=== PATIENT | female | born 1945 | race Caucasian/White ===

== ENCOUNTER 2018-03-09 14:14 | Inpatient (IN) | payer MEDICARE, OTHER ==
[2018-03-09 15:54] LABS: ADD MAN DIFF? NO
[2018-03-09 15:58] LABS: ABNORMAL IP MESSAGE 1; BASOPHILS % 0.1 % (0.0-2.0); EOSINOPHILS % 0.1 % (0.0-7.0); HEMATOCRIT 32.1 % (37.0-47.0); HEMOGLOBIN 9.1 g/dl (12.0-16.0); LYMPHOCYTES # 1.5 10^3/ul (0.8-2.9); LYMPHOCYTES % 10.6 % (15.0-51.0); MEAN CORPUSCULAR HEMOGLOBIN 20.4 pg (29.0-33.0); MEAN CORPUSCULAR HGB CONC 28.3 g/dl (32.0-37.0); MEAN PLATELET VOLUME 9.8 fl (7.4-10.4); MONOCYTE # 1.1 10^3/ul (0.3-0.9); MONOCYTES % 7.8 % (0.0-11.0); NEUTROPHIL # 11.3 10^3/ul (1.6-7.5); NEUTROPHILS % 80.9 % (39.0-77.0); PLATELET COUNT 385 10^3/UL (140-415); RED BLOOD COUNT 4.46 10^6/ul (4.20-5.40); RED CELL DISTRIBUTION WIDTH 19.7 % (11.5-14.5)
[2018-03-09 15:58] LABS: WHITE BLOOD COUNT 13.9 10^3/ul (4.8-10.8)
[2018-03-09] MEDS: SOD CHLORIDE 0.9% 1,000 ML IV (15:59)
[2018-03-09] MEDS: OXYCODONE/ACETAMINOPHEN (5/325) TAB PO (16:00)
[2018-03-09] MEDS: KETOROLAC 15 MG INJ IV (16:00)
[2018-03-09 16:07] LABS: POSITIVE DIFF @See below
[2018-03-09 16:16] LABS: ALANINE AMINOTRANSFERASE 11 IU/L (13-69); ALBUMIN 4.1 g/dl (3.3-4.9); ALBUMIN/GLOBULIN RATIO 1.41; ALKALINE PHOSPHATASE 94 IU/L (42-121); ANION GAP 8 (5-13); ASPARTATE AMINO TRANSFERASE 16 IU/L (15-46); BILIRUBIN,INDIRECT 0.3 mg/dl (0-1.1); BILIRUBIN,TOTAL 0.3 mg/dl (0.2-1.3); BLOOD UREA NITROGEN 20 mg/dl (7-20); CALCIUM 10.3 mg/dl (8.4-10.2); CARBON DIOXIDE 30 mmol/L (21-31); CHLORIDE 106 mmol/L (97-110); CREATINE KINASE 99 IU/L (23-200); CREATININE 0.55 mg/dl (0.44-1.00); Estimated GFR > 60 mL/min (>60); GLUCOSE 100 mg/dl (70-220); LIPASE 47 U/L (23-300); SODIUM 144 mmol/L (135-144)
[2018-03-09 16:24] LABS: POTASSIUM 2.8 mmol/L (3.5-5.1)
[2018-03-09 16:27] LABS: TROPONIN-I < 0.012 ng/ml (0.000-0.120)
[2018-03-09] MEDS: MAGNESIUM SULFATE 1 GM/D5W 100 ML IVPB (17:23)
[2018-03-09] MEDS: POTASSIUM CHLORIDE 100 ML IVPB (17:42)
[2018-03-09] MEDS ORDERED: NACL 0.9% 3 ML SYG IV (18:00)
[2018-03-09] MEDS ORDERED: ACETAMINOPHEN 325 MG TAB PO (18:00)
[2018-03-09] MEDS ORDERED: ZOLPIDEM 5 MG TAB PO (18:00)
[2018-03-09] MEDS: CEFTRIAXONE 1 GM/50 ML (PMX) 50 ML IVPB (20:12)
[2018-03-09 21:15] LABS: ADD UMIC YES; UR ASCORBIC ACID 40 mg/dL (NEGATIVE); UR BACTERIA FEW /HPF (NONE SEEN); UR BILIRUBIN (Dip) 1+ mg/dL (NEGATIVE); UR BLOOD (Dip) NEGATIVE (NEGATIVE); UR CLARITY CLOUDY (CLEAR); UR COLOR AMBER (YELLOW); UR GLUCOSE (Dip) NEGATIVE (NEGATIVE); UR KETONES (Dip) 1+ mg/dL (NEGATIVE); UR LEUKOCYTE ESTERASE (Dip) 1+ Leu/ul (NEGATIVE); UR MUCUS MANY /HPF (NONE SEEN); UR NITRITE (Dip) NEGATIVE (NEGATIVE); UR RBC 4 /HPF (0-5); UR SQUAMOUS EPITHELIAL CELL FEW /HPF (FEW); UR TOTAL PROTEIN (Dip) 1+ mg/dl (NEGATIVE); UR UROBILINOGEN (Dip) 2+ mg/dL (NEGATIVE); UR WBC 19 /HPF (0-5)
[2018-03-09] MEDS: POTASSIUM CHLORIDE 40 MEQ in SOD CHLORIDE 0.45% 1,000 ML IV (22:58)
[2018-03-09] MEDS: PREGABALIN 25 MG CAP PO (22:59)
[2018-03-09] MEDS: FLUTICASONE/VILANTEROL 100-25 INH (22:59)
[2018-03-09] MEDS: ATORVASTATIN 10 MG TAB PO (22:59)
[2018-03-10] MEDS: morphine 2 MG INJ IV ×2 (00:13→09:13)
[2018-03-10] MEDS: POTASSIUM CHLORIDE 100 ML IVPB (02:07)
[2018-03-10] MEDS: POTASSIUM CHLORIDE 40 MEQ in SOD CHLORIDE 0.45% 1,000 ML IV ×2 (04:00→15:18)
[2018-03-10] MEDS: PANTOPRAZOLE (EC) 40 MG TAB PO ×2 (05:46→16:26)
[2018-03-10] MEDS ORDERED: AMLODIPINE 10 MG TAB PO (09:00)
[2018-03-10] MEDS ORDERED: LOSARTAN 50 MG TAB PO (09:00)
[2018-03-10] MEDS: PREGABALIN 25 MG CAP PO ×3 (09:06→20:36)
[2018-03-10] MEDS: POLYETHYLENE GLYCOL 17 GM PACKET PO (09:06)
[2018-03-10 09:07] LABS: ADD MAN DIFF? NO
[2018-03-10 09:09] LABS: WHITE BLOOD COUNT 7.5 10^3/ul (4.8-10.8)
[2018-03-10 09:09] LABS: ABNORMAL IP MESSAGE 1; BASOPHILS % 0.3 % (0.0-2.0); EOSINOPHILS # 0.2 10^3/ul (0.0-0.5); HEMOGLOBIN 8.2 g/dl (12.0-16.0); LYMPHOCYTES # 1.5 10^3/ul (0.8-2.9); LYMPHOCYTES % 19.9 % (15.0-51.0); MEAN CORPUSCULAR HGB CONC 27.3 g/dl (32.0-37.0); MEAN CORPUSCULAR VOLUME 73.2 fl (82.0-101.0); MEAN PLATELET VOLUME 10.2 fl (7.4-10.4); MONOCYTE # 0.7 10^3/ul (0.3-0.9); MONOCYTES % 8.9 % (0.0-11.0); NEUTROPHIL # 5.2 10^3/ul (1.6-7.5); NEUTROPHILS % 68.6 % (39.0-77.0); PLATELET COUNT 353 10^3/UL (140-415)
[2018-03-10] MEDS: FLUTICASONE/VILANTEROL 100-25 INH (09:09)
[2018-03-10 09:14] LABS: POSITIVE DIFF @See below
[2018-03-10 09:29] LABS: HEMOGLOBIN A1C 5.7 % (0-5.9)
[2018-03-10 09:39] LABS: IRON < 10 ug/dl (35-150)
[2018-03-10 09:45] LABS: TOTAL IRON BINDING CAPACITY 310 ug/dl (241-421)
[2018-03-10 09:51] LABS: ANION GAP 6 (5-13); BLOOD UREA NITROGEN 16 mg/dl (7-20); CALCIUM 9.4 mg/dl (8.4-10.2); CARBON DIOXIDE 26 mmol/L (21-31); CHLORIDE 110 mmol/L (97-110); CREATININE 0.47 mg/dl (0.44-1.00); Estimated GFR > 60 mL/min (>60); GLUCOSE 91 mg/dl (70-220); MAGNESIUM 2.2 mg/dl (1.7-2.5); POTASSIUM 4.6 mmol/L (3.5-5.1); SODIUM 142 mmol/L (135-144)
[2018-03-10] MEDS: HYDROCODONE/APAP (5/325) TAB PO ×2 (11:35→20:34)
[2018-03-10] MEDS: CEFTRIAXONE 1 GM/50 ML (PMX) 50 ML IVPB (17:54)
[2018-03-10] MEDS: ATORVASTATIN 10 MG TAB PO (20:33)
[2018-03-10] MEDS: DOCUSATE SODIUM 100 MG CAP PO (20:33)
[2018-03-10] MEDS: ONDANSETRON 4 MG INJ IV (20:50)
[2018-03-10] MEDS ORDERED: morphine LIQ (10 MG/5 ML) CUP PO (21:30)
[2018-03-11] MEDS: POTASSIUM CHLORIDE 40 MEQ in SOD CHLORIDE 0.45% 1,000 ML IV ×3 (02:08→19:26)
[2018-03-11] MEDS: PANTOPRAZOLE (EC) 40 MG TAB PO (05:22)
[2018-03-11] MEDS: FLUTICASONE/VILANTEROL 100-25 INH (08:44)
[2018-03-11] MEDS: PREGABALIN 25 MG CAP PO ×3 (08:44→20:02)
[2018-03-11] MEDS: POLYETHYLENE GLYCOL 17 GM PACKET PO (08:45)
[2018-03-11] MEDS: HYDROCODONE/APAP (5/325) TAB PO ×3 (09:05→21:14)
[2018-03-11] MEDS: CEFTRIAXONE 1 GM/50 ML (PMX) 50 ML IVPB (18:00)
[2018-03-11] MEDS: ATORVASTATIN 10 MG TAB PO (20:02)
[2018-03-11] MEDS: DOCUSATE SODIUM 100 MG CAP PO (23:22)
[2018-03-12] MEDS: HYDROCODONE/APAP (5/325) TAB PO ×4 (03:31→22:55)
[2018-03-12] MEDS: PANTOPRAZOLE (EC) 40 MG TAB PO ×2 (06:00→06:10)
[2018-03-12] MEDS: POTASSIUM CHLORIDE 40 MEQ in SOD CHLORIDE 0.45% 1,000 ML IV ×3 (06:09→20:47)
[2018-03-12] MEDS: PREGABALIN 25 MG CAP PO ×3 (08:26→20:48)
[2018-03-12] MEDS: clonAZEPAM 0.5 MG TAB PO ×2 (09:33→10:47)
[2018-03-12] MEDS: FLUTICASONE/VILANTEROL 100-25 INH (10:46)
[2018-03-12] MEDS: POLYETHYLENE GLYCOL 17 GM PACKET PO ×2 (10:46→14:32)
[2018-03-12] MEDS: CEPASTAT LOZENGE MT (16:15)
[2018-03-12] MEDS: CEFTRIAXONE 1 GM/50 ML (PMX) 50 ML IVPB (17:01)
[2018-03-12] MEDS: ONDANSETRON 4 MG INJ IV (20:47)
[2018-03-12] MEDS: ATORVASTATIN 10 MG TAB PO (20:47)
[2018-03-13] MEDS: PANTOPRAZOLE (EC) 40 MG TAB PO (05:36)
[2018-03-13] MEDS: HYDROCODONE/APAP (5/325) TAB PO ×2 (05:36→11:36)
[2018-03-13 07:37] LABS: ADD MAN DIFF? NO
[2018-03-13 07:45] LABS: WHITE BLOOD COUNT 5.7 10^3/ul (4.8-10.8)
[2018-03-13 07:45] LABS: ABNORMAL IP MESSAGE 1; BASOPHILS % 0.5 % (0.0-2.0); EOSINOPHILS # 0.2 10^3/ul (0.0-0.5); HEMATOCRIT 28.5 % (37.0-47.0); LYMPHOCYTES % 35.2 % (15.0-51.0); MEAN CORPUSCULAR HEMOGLOBIN 20.2 pg (29.0-33.0); MEAN CORPUSCULAR HGB CONC 28.1 g/dl (32.0-37.0); MEAN CORPUSCULAR VOLUME 71.8 fl (82.0-101.0); MEAN PLATELET VOLUME 9.9 fl (7.4-10.4); MONOCYTE # 0.6 10^3/ul (0.3-0.9); MONOCYTES % 9.9 % (0.0-11.0); NEUTROPHIL # 2.9 10^3/ul (1.6-7.5); NEUTROPHILS % 50.2 % (39.0-77.0); NUCLEATED RED BLOOD CELLS% 0.3 /100WBC (0.0-0.0); PLATELET COUNT 362 10^3/UL (140-415); RED BLOOD COUNT 3.97 10^6/ul (4.20-5.40); RED CELL DISTRIBUTION WIDTH 19.5 % (11.5-14.5)
[2018-03-13 07:50] LABS: POSITIVE DIFF @See below
[2018-03-13 08:01] LABS: ANION GAP 7 (5-13); BLOOD UREA NITROGEN 6 mg/dl (7-20); CALCIUM 10.1 mg/dl (8.4-10.2); CARBON DIOXIDE 32 mmol/L (21-31); CHLORIDE 103 mmol/L (97-110); CREATININE 0.52 mg/dl (0.44-1.00); Estimated GFR > 60 mL/min (>60); GLUCOSE 99 mg/dl (70-220); MAGNESIUM 1.9 mg/dl (1.7-2.5); PHOSPHORUS 4.6 mg/dl (2.5-4.9); POTASSIUM 4.6 mmol/L (3.5-5.1); SODIUM 142 mmol/L (135-144)
[2018-03-13] MEDS: PREGABALIN 25 MG CAP PO ×2 (08:27→12:34)
[2018-03-13] MEDS: FLUTICASONE/VILANTEROL 100-25 INH (08:27)
[2018-03-13] MEDS: POLYETHYLENE GLYCOL 17 GM PACKET PO (08:27)
[2018-03-13] MEDS: POTASSIUM CHLORIDE 40 MEQ in SOD CHLORIDE 0.45% 1,000 ML IV (11:57)
== END 2018-03-13 16:35 | disposition home health service (06) | DRG 872 ==
LOC: PP2 03-12 14:08 → E/R 14:14 → TEL 17:26
DX: A41.9 Sepsis, unspecified organism (principal); N39.0 Urinary tract infection, site not specified; I95.1 Orthostatic hypotension; E87.6 Hypokalemia; E86.0 Dehydration; G89.4 Chronic pain syndrome; I10 Essential (primary) hypertension; E78.5 Hyperlipidemia, unspecified; M41.9 Scoliosis, unspecified; J02.9 Acute pharyngitis, unspecified
CPT/HCPCS: 36415; 70450; 71045; 72125; 72170; 73562; 80048; 80053; 81001; 82550; 83036; 83540; 83690; 83735; 84100; 84484; 85025; 96374; 96375; 97110; 97163; 99285-25; G0378

== ENCOUNTER 2018-10-01 23:40 | Emergency (ER) | payer MEDICARE, OTHER ==
[2018-10-02] MEDS: clonAZEPAM 0.5 MG TAB PO (01:00)
[2018-10-02] MEDS: AMLODIPINE 10 MG TAB PO (01:00)
[2018-10-02 01:02] LABS: URINE BLOOD (Dip) POC 1+ (NEGATIVE); URINE GLUCOSE (Dip) POC Negative (NEGATIVE); URINE KETONES (Dip) POC 1+ (NEGATIVE); URINE LEUKOCYTE EST (Dip) POC 1+ (NEGATIVE); URINE NITRITE (Dip) POC Positive (NEGATIVE); URINE TOTAL PROTEIN POC 1+ (NEGATIVE)
[2018-10-02 02:08] LABS: ADD MAN DIFF? NO
[2018-10-02 02:17] LABS: BASOPHILS % 0.3 % (0.0-2.0); EOSINOPHILS % 0.2 % (0.0-7.0); HEMATOCRIT 39.4 % (37.0-47.0); HEMOGLOBIN 12.3 g/dl (12.0-16.0); LYMPHOCYTES # 2.3 10^3/ul (0.8-2.9); LYMPHOCYTES % 16.7 % (15.0-51.0); MEAN CORPUSCULAR HGB CONC 31.2 g/dl (32.0-37.0); MEAN CORPUSCULAR VOLUME 86.4 fl (82.0-101.0); MEAN PLATELET VOLUME 10.6 fl (7.4-10.4); MONOCYTE # 1.4 10^3/ul (0.3-0.9); MONOCYTES % 10.6 % (0.0-11.0); NEUTROPHIL # 9.7 10^3/ul (1.6-7.5); PLATELET COUNT 315 10^3/UL (140-415); RED BLOOD COUNT 4.56 10^6/ul (4.20-5.40)
[2018-10-02 02:17] LABS: WHITE BLOOD COUNT 13.5 10^3/ul (4.8-10.8)
[2018-10-02 02:34] LABS: ANION GAP 7 (5-13); BLOOD UREA NITROGEN 8 mg/dl (7-20); CARBON DIOXIDE 28 mmol/L (21-31); CHLORIDE 105 mmol/L (97-110); CREATININE 0.51 mg/dl (0.44-1.00); GLUCOSE 107 mg/dl (70-220); POTASSIUM 3.6 mmol/L (3.5-5.1); SODIUM 140 mmol/L (135-144)
[2018-10-02 02:37] LABS: INR 0.94; PROTIME 12.7 Sec (11.9-14.9)
[2018-10-02] MEDS: IBUPROFEN 600 MG TAB PO (03:01)
[2018-10-02] MEDS: TRIMETHOPRIM/SULFAMETHOX (DS) TAB PO (03:47)
== END 2018-10-02 04:09 | disposition home or self-care (01) ==
LOC: E/R 23:40
DX: N39.0 Urinary tract infection, site not specified (principal); M54.2 Cervicalgia; R51 Headache; F41.9 Anxiety disorder, unspecified; Z86.73 Personal history of transient ischemic attack (TIA), and cerebral infarction without residual deficits
CPT/HCPCS: 70450; 72125; 80048; 81003; 85025; 85610; 85730; 87086; 99284-25